=== PATIENT | female | born 2005 | race Caucasian/White ===

== ENCOUNTER → 2024-04-26 15:36 | Outpatient (CLI) | payer OTHER, MEDICAID, SELFPAY ==
[2024-04-26 18:22] LABS: Add Manual Diff / Slide Review NO; Basophils Absolute Auto 0 /uL (0-100); Basophils Percent Auto 0.2 % (0-2); Eosinophils Absolute Auto 100 /uL (0-450); Eosinophils Percent Auto 0.5 % (2-4); Hematocrit 35.8 % (36-46); Hemoglobin 12.1 g/dL (12.0-16.0); Lymphocytes Absolute Auto 3100 /uL (1100-4500); Lymphocytes Percent Auto 18.2 % (25-40); Mean Corpuscular HGB Conc 33.7 % (30-36); Mean Corpuscular Hemoglobin 28.4 PG (26-34); Mean Corpuscular Volume 84.5 fL (80-100); Monocytes Absolute Auto 1400 /uL (0-900); Monocytes Percent Auto 8.1 % (3-14); Neutrophils Absolute Auto 12600 /uL (1500-7000); Platelet Count 271 X10^3/uL (150-400); Red Blood Cell Count 4.24 X10^6/uL (4.0-5.2); Red Cell Distribution Width 13.6 % (11.6-14.8); White Blood Cell Count 17.3 X10^3/uL (4.5-11.0)
[2024-04-26 19:06] LABS: GTT (PREG) 1 Hour PP 50gm Dose 87 mg/dL (76-139)
== END ==
PROVIDERS: Referring Provider Student in an Organized Health Care Education/Training Program; Visit Provider Student in an Organized Health Care Education/Training Program
DX: Z34.00 Encounter for supervision of normal first pregnancy, unspecified trimester (principal)
CPT/HCPCS: 82950; 85025; 86850; 86900; 86901

== ENCOUNTER → 2024-05-02 12:42 | Outpatient (CLI) | payer OTHER, MEDICAID, SELFPAY ==
--- NOTE | 2024-05-02 12:43 | DI.US.S_ITS ---
PROCEDURE: US OB >= 14 WEEKS FETUS INDICATIONS: anatomy OUTSIDE/PRIOR DATING DATA: Last menstrual period (LMP): 10/14/2023. LMP-based estimated date of delivery (WALE): 07/20/2024. First dating scan (date and location): Not applicable. Estimated date of delivery (WALE) from first dating scan: Not applicable. The calculations are made using the clinical WALE of 07/20/2024. TECHNIQUE: Real-time scanning was performed of the fetus, with image documentation and biometric measurements. Endovaginal scanning: No COMPARISON: None. FINDINGS: General: A single living intrauterine gestation is present. Presentation: Breech. Placenta: Placental position is anterior , without previa. Amniotic fluid index: 17.0 cm, normal range is 5-24 cm. Single deepest vertical pocket is 7.6 cm. heart rate: 136 beats per minute. Maternal cervical canal: 4.0 cm long. Normal lower limit is 2.5 cm. biometrics: Biparietal diameter: 7.0 cm, 28 week 1 day Head circumference: 27.0 cm, 29 week 3 day Abdominal circumference: 25.1 cm, 29 week 2 day Femur length: 5.1 cm, 27 week 2 day Clinically estimated gestational age: 28 week 5 day Composite gestational age from present scan: 28 week 4 day Estimated weight and percentile: 1249 g, 32% Anatomic survey: Neuro: Ventricles are non-dilated at less than 10 mm. Cisterna magna is normal at 3-11 mm. Cerebellum is normal in size and morphology. Nuchal skin fold: Normal at less than 6 mm between 14-21 weeks gestational age. Face: Nose and lips, facial profile are normal. Spine: No evidence for spina bifida. Heart: 4-chambered heart is present, with normal ventricular outflow tracts. Diaphragm: Diaphragm is intact. Stomach: Left-sided stomach is present. Kidneys: No hydronephrosis. Normal is less than 5 mm in 2nd trimester, less than 7 mm in 3rd trimester. Cord: 3-vessel cord has orthotopic insertion. Bladder: Normal in size. Extremities: All 4 extremities identified. IMPRESSION: Single live intrauterine consistent with 28 week 4 day gestation Normal anatomic survey Approved by: Ian Grigsby M.D. on 05/02/2024 at 18:10
[2024-05-02 15:48] LABS: Urine N gonorrhoeae NOT DETECTED
[2024-05-02 15:49] LABS: Urine Chlamydia NOT DETECTED
== END ==
PROVIDERS: Referring Provider Student in an Organized Health Care Education/Training Program; Visit Provider Student in an Organized Health Care Education/Training Program
DX: Z34.03 Encounter for supervision of normal first pregnancy, third trimester (principal); Z3A.28 28 weeks gestation of pregnancy
CPT/HCPCS: 76811; 87491; 87591

== ENCOUNTER 2024-06-12 14:40 | Outpatient (CLI) | payer OTHER, MEDICAID, SELFPAY | END 2024-06-12 15:45 | disposition home or self-care (01) | LOC: OB 06-16 09:25 | PROVIDERS: Referring Provider Obstetrics & Gynecology; Visit Provider Obstetrics & Gynecology | DX: O99.413 Diseases of the circulatory system complicating pregnancy, third trimester (principal); O99.333 Smoking (tobacco) complicating pregnancy, third trimester; F17.210 Nicotine dependence, cigarettes, uncomplicated; O99.513 Diseases of the respiratory system complicating pregnancy, third trimester; J45.909 Unspecified asthma, uncomplicated; Z3A.34 34 weeks gestation of pregnancy; I99.9 Unspecified disorder of circulatory system | CPT/HCPCS: 59025; G0378; G0379 ==

== ENCOUNTER 2024-06-15 11:40 | Inpatient (IN) | payer OTHER, MEDICAID, SELFPAY ==
--- NOTE | 2024-06-15 12:25 | PM.OBHP.1 ---
OB HPI Date/Time Date of admission: 06/15/24 Date Patient Seen: 06/15/24 Time Patient Seen: 11:55 History of Present Condition Chief complaint: back px, cramps 35 wks : 1 Para: 0 Estimated Date of Delivery: 07/20/24 Estimated Gestational Age (weeks): 35+0 Narrative: Martinez Barton is a 18 year old female Comments: presented to triage with painful contractions for the last few days. Denies leaking fluid, vaginal bleeding, or decreased movement. Indications Operative indications ( section): breech presentation History of Present care: limited care Dating criteria: LMP confirmed by 2nd trimester US Ultrasounds: normal mid trimester US Narrative: G1 Bicuspid aortic valve, followed by [facility]ology, echo ordered by [facility] provider ADHD, autism, severe anxiety, not currently medicated but sees [facility] Declines to share FOB info, support person is mom Favio h/o maternal mood disorder, no current medications; h/o maternal PTSD/SA, works with community therapist; asthma - mild intermittent, rare albuterol use without h/o hosp/intubations late entry into care at 24wga (outside dating US requested and pending) ongoing tobacco/THC use, Preadmission Labs Blood type: A (+) positive -: Antibody screen: negative, Cystic fibrosis screen: unknown, GBS status: unknown, HBsAG: negative, HIV: negative, HSV 1: unknown, HSV 2: unknown and RPR/VDLR: negative -: Chlamydia screen: not detected and Gonorrhea screen: not detected -: Rubella: immune and Varicella: immune HCT: 35.8 HCAB: negative 1 hr GTT: 87 Evaluation Evaluation Baseline heart rate: 130 Variability: Moderate (11-25) monitor accelerations: Present Monitor Decelerations: Absent Contraction Frequency (minutes): 4 Uterine Contraction Intensity: Moderate Status: Category l Dilation (cm): 6 Effacement (%): 90 station: -1 Comments: Breech on bedside ultrasound [facility] Medical History (Updated 04/18/24 @ 14:50 by Marjorie Canada, PAUL) Eating disorder Migraines Amblyopia Surgical History (Updated 04/18/24 @ 14:20 by Marjorie Canada RN) No pertinent past surgical history Family History (Updated 04/18/24 @ 14:25 by Marjorie Canada RN) Mother Leukemia Grandmother Ovarian cancer Uterine cancer Cervical cancer COPD (chronic obstructive pulmonary disease) Smoker Social History marital status: unmarried,single number of children: 0 household members: family (mother and grandfather) lives independently: Yes caregiver/support person: No housing: house pets and animals: Yes (cats, wears gloves and mask when scooping litter box) education level: high school (Just finishing senior classes) occupational status: unemployed and student current occupational exposures/hazards: No special rowan needs: No travel history: over 6 months ago seatbelt use: always helmet use: Yes water heater temp set < 120 deg: Yes working smoke detector in home: Yes fire extinguisher in home: Yes carbon monox detector in home: Yes firearms in home: Yes firearms unloaded and locked: Yes do you feel safe at home: Yes Smoking Status: Current every day smoker (trying to quit) Tobacco: How many years used: 6 quit status: considering quitting second hand exposure: Yes (mother and grandfather also smoke) alcohol intake: former (very occasionally when not pre) substance use type: marijuana (still smoking, cutting down) during the past year weight has: other (wide swings with meds, up to ~200lb, back to almost normal at conception) daily servings fruits/veg: other (I don't keep track.) caffeine: Yes (1-2 cups coffee in AM) Type(s) of exercise: walking Meds Home Medications and Allergies Home Medications Medication Instructions Recorded Confirmed Type [id number] 400 mcg-om3 35 mg-dha 25 tab PO 04/18/24 06/12/24 History mg-epa 5 mg-fish oil chewable tablet albuterol sulfate 90 mcg/actuation 2 puff inhalation Q6H PRN 04/18/24 06/12/24 History aerosol inhaler aspirin 81 mg tablet,delayed 81 mg PO DAILY 04/18/24 06/12/24 History release cetirizine 10 mg tablet (All Day 10 mg PO DAILY PRN 04/18/24 06/12/24 History Allergy (cetirizine)) fluticasone propionate 110 1 puff inhalation BID 04/18/24 06/12/24 History mcg/actuation HFA aerosol inhaler glucosamine sulf dipotassium Cl tab PO 04/18/24 06/12/24 History 750 mg-chondroitin sulf 600 mg tablet omeprazole 20 mg capsule,delayed 20 mg PO DAILY 05/14/24 06/12/24 History release metoclopramide HCl 10 mg tablet 10 mg PO Q6H PRN nausea and 05/29/24 06/12/24 Rx vomiting #60 tabs ondansetron 4 mg disintegrating 4 mg PO Q8H PRN nausea and 05/29/24 06/12/24 Rx tablet vomiting #30 tabs Allergies Allergy/AdvReac Type Severity Reaction Status Date / Time pear Allergy Severe Anaphylaxis Verified 06/12/24 14:01 Review of Systems Review of Systems ROS: Yes All systems reviewed with the patient and are negative except as otherwise documented OB Exam Vital signs Blood Pressure: 122/59 Pulse Rate: 93 HENMT Head: normal to inspection Resp Effort & Inspection: normal respiratory effort and able to speak in complete sentences Other: breathing through contractions Cardio Rate: regular rate Rhythm: regular rhythm Extremities Lower extremity: Yes normal to inspection GI Other: gravid, nontender, nondistended Other: breech on ultrasound Assessment and Plan Assessment and Plan Assessment and Plan narrative: 18yo at 35+0wks admitted in labor at 6cm with a bulging bag. On bedside ultrasound, fetus is in breech presentation. -CBC, T&S on admission -continuous EFM -neuraxial anesthesia -GBS unknown, plan for 2g Ancef for surgical prophylaxis -PPH risk low -VTE risk low, plan for SCDs -will move to OR urgently for delivery counseling: It was explained to the patient that a section is a surgery to deliver the baby through an incision in the abdominal wall and uterus.? All procedures can be associated with risk and unforeseen complications, which can be immediate or delayed.? Risks and complications of section include, but are not limited to:? infection of the uterus, pelvic organs, or skin; inadvertent injury to internal organs such as the bowel, bladder, or possibly even the baby; blood loss, transfusion, and/or life-threatening hemorrhage requiring hysterectomy; blood clots in the legs, pelvic organs, or lungs; adverse reaction to medications or anesthesia during surgery; development of placenta accreta spectrum in a subsequent ; and increased risk of section in a subsequent . Time-Based Coding :: [30min] spent with patient and on the chart (including review of chart, obtaining history, exam, reviewing outside data, placing orders, documenting exam and treatment plan, and counseling patient) on [06/15/24].
[2024-06-15] MEDS: CITRIC ACID/SODIUM CITRATE 15 ML SOLUTION 30 ML PO (12:36)
[2024-06-15] MEDS: LACTATED RINGERS 1,000 ML 999 ML IV ×2 (12:36→13:21)
[2024-06-15 12:38] VITALS: BP 122/59; PULSE 93
[2024-06-15 12:39] LABS: Add Manual Diff / Slide Review NO; Basophils Absolute Auto 100 /uL (0-100); Basophils Percent Auto 0.3 % (0-2); Eosinophils Absolute Auto 100 /uL (0-450); Eosinophils Percent Auto 0.3 % (2-4); Hematocrit 37.4 % (36-46); Hemoglobin 12.4 g/dL (12.0-16.0); Lymphocytes Absolute Auto 2200 /uL (1100-4500); Lymphocytes Percent Auto 9.4 % (25-40); Mean Corpuscular HGB Conc 33.2 % (30-36); Mean Corpuscular Hemoglobin 27.4 PG (26-34); Mean Corpuscular Volume 82.6 fL (80-100); Monocytes Absolute Auto 1700 /uL (0-900); Monocytes Percent Auto 7.3 % (3-14); Neutrophils Absolute Auto 19500 /uL (1500-7000); Neutrophils Percent Auto 82.7 % (50-75); Platelet Count 338 X10^3/uL (150-400); Red Blood Cell Count 4.52 X10^6/uL (4.0-5.2); Red Cell Distribution Width 13.9 % (11.6-14.8); White Blood Cell Count 23.6 X10^3/uL (4.5-11.0)
[2024-06-15 12:44] LABS: Alanine Aminotransferase 17 IU/L (<35); Albumin 4.3 g/dL (3.5-5.0); Albumin Globulin Ratio 1.3 (1.0-2.8); Alkaline Phosphatase 104 U/L (38-126); Aspartate Aminotransferase 26 IU/L (14-36); BUN Creatinine Ratio 14.6 (6-22); Bilirubin Total 0.3 mg/dL (0.2-1.3); Blood Urea Nitrogen 6 mg/dL (7-17); Calcium 9.7 mg/dL (8.4-10.2); Carbon Dioxide 25 mmol/L (22-32); Chloride 105 mmol/L (98-107); Estimated Glomerular Filt Rate > 60 mL/min (>60); Globulin 3.2 g/dL (1.7-4.1); Glucose 80 mg/dL (70-100); HEMOLYSIS < 15 (0-50); Potassium 3.7 mmol/L (3.4-5.1); Sodium 137 mmol/L (137-145); Total Protein 7.5 g/dL (6.3-8.2)
[2024-06-15] MEDS: CEFAZOLIN 2 GM/100 ML PREMIX 100 ML IV (13:04)
[2024-06-15] MEDS: ACETAMINOPHEN IV 1,000 MG/100 ML VIAL 400 MG IV (13:15)
--- NOTE | 2024-06-15 13:17 | SUR.OPER ---
Supine on Padded OR bed, head on pillow, safety belt at thigh, arms secured on padded arm boards at <90 degrees abduction. Bump under right buttock. Legs uncrossed with pillow under knees, gel pad to heels, tape over blanket to lower legs.
--- NOTE | 2024-06-15 13:25 | SUR.OPER ---
baby girl born at 1324
[2024-06-15] MEDS: TRANEXAMIC ACID 1,000 MG in SODIUM CHLORIDE 0.9% 100 ML 200 MG IV (13:45)
[2024-06-15 14:26] VITALS: BP 100/59; PULSE 72; RESP 11; TEMP 36.6; O2SAT 98
[2024-06-15 14:31] VITALS: BP 109/54; BP 95/55; PULSE 78; PULSE 81; RESP 11; RESP 13; O2SAT 97; O2SAT 98
--- NOTE | 2024-06-15 14:31 | P.OP_ITS ---
Operative Date/Time/Diagnoses Date of procedure: 06/15/24 Time of procedure: 13:15 Pre-op diagnosis: 1. Partida intrauterine gestation at 35+0 weeks 2. labor 3. Breech presentation Post-op diagnosis: same Procedure & Clinicians Procedure: Primary low transverse section Same procedure as scheduled: Yes Indications: 18yo at 35+0wks presented to triage with painful contractions and cervical dilation to 6cm. Her baby was noted to be in breech presentation, thus she was counseled and consented for primary delivery. Surgeon: Rosanna David Click Yes if Unassisted: No Atomic Physics Teacher: Mikaela Jackson Reason for Atomic Physics Teacher: Atomic Physics Teacher was necessary for timely, efficient, and safe completion of the procedure. Anesthesia Type: Spinal Operative Notes Findings: Normal-appearing uterus and bilateral fallopian tubes and ovaries. Clear fluid noted with AROM. Delivery productive of a viable female infant in complete breech presentation with APGARS 8/9 and weighing 2370g. Specimen(s): cord blood Intraoperative meds administered: Duramorph, Ketorolac and Tranexamic acid Applied: Catheter Estimated Blood Loss (mL): 800 Blood products transfused: none Procedure in detail: The risks, benefits, indications and alternatives of the procedure were reviewed with the patient and informed consent was obtained. The patient was taken to the operating room where spinal anesthesia was obtained without difficulty and was found to be adequate. Sequential compression devices were placed bilaterally for VTE prophylaxis. She was then prepped and draped in the normal, sterile fashion in the dorsal supine position with a leftward tilt. She received 2g Ancef for surgical prophylaxis. A Pfannenstiel skin incision was then made with the scalpel and carried through to the underlying layer of fascia. The fascia was incised in the midline and was digitally. The superior aspect of the incision was grasped, tented up with Nicholas clamps and the rectus muscles were dissected off bluntly, aided with Marquez scissors. The rectus muscles were then at the midline. The peritoneum was identified, and entered digitally. The peritoneal incision was then extended horizontally, superiorly and inferiorly, with good visualization of the bladder. The bladder blade was then inserted. The lower uterine segment was incised in a transverse fashion with the scalpel. The uterine incision was then extended manually in a cephalad/caudad direction. The amniotic sac was artificially ruptured, productive of clear fluid. The bladder blade was then removed. The infant?s sacrum was grasped and brought to the level of the hysterotomy. Pinard?s maneuver was used to atraumatically deliver the legs through the hysterotomy. A blue towel was placed around the sacrum and Loveset?s maneuver was performed which allowed delivery of the rest of the body and head. The cord was doubly clamped and cut after a 60sec delay given that the was vigorous, then the handed off to waiting pediatric care. The placenta was then removed spontaneously with gentle traction on the umbilical cord. The uterus was then exteriorized and cleared of all clots and debris. The uterine incision was repaired with 0-vicryl in a running, locked fashion. A figure of eight suture was placed at the left edge of the hysterotomy, along with an O'leary stitch given expanding bleeding beneath the uterine serosal layer on the left side. This was then inspected and noted to be hemostatic. The posterior cul-de-sac was then irrigated and suctioned.? The uterus was returned to the abdomen and the hysterotomy was again noted to be hemostatic. The paracolic gutters were cleared of all clot and debris. There was continued run down of blood in the gutters and lower uterine segment, which was monitored for an extended period of time, and noted to be dry after observation and 1g of TXA given. The fascia was reapproximated with 0-vicryl in a running fashion. The subcutaneous layer was closed with 3-0 vicryl in simple, interrupted sutures. The skin was closed with 4-0 monocryl in a subcuticular fashion. The incision was then dressed with steri-strips and a pressure dressing was applied. At the completion of the case, a Crede maneuver was performed with good uterine tone and minimal vaginal bleeding noted.? The patient tolerated the procedure well. Sponge, lap and needle counts were correct x3. The patient was taken to the recovery room in stable condition. Complications: none Post-operative Condition: stable Disposition: PACU Aftercare: routine postop
[2024-06-15 14:37] VITALS: BP 97/48; PULSE 63; RESP 11; O2SAT 98
[2024-06-15] MEDS: LACTATED RINGERS 1,000 ML 100 ML IV (15:58)
[2024-06-15] MEDS: OXYCODONE IR 5 MG TABLET PO (17:18)
[2024-06-15] MEDS: ONDANSETRON 4 MG/2 ML INJ IV (19:20)
[2024-06-15] MEDS: METOCLOPRAMIDE 10 MG/2 ML INJ IV (19:53)
[2024-06-15] MEDS: KETOROLAC 30 MG/ML VIAL IV (20:22)
[2024-06-15] MEDS: ACETAMINOPHEN 325 MG TABLET 650 MG PO (22:12)
[2024-06-16] MEDS: KETOROLAC 30 MG/ML VIAL IV ×2 (02:04→08:15)
[2024-06-16] MEDS: ACETAMINOPHEN 325 MG TABLET 650 MG PO ×2 (05:48→11:39)
[2024-06-16 06:29] LABS: Add Manual Diff / Slide Review NO; Basophils Absolute Auto 100 /uL (0-100); Basophils Percent Auto 0.2 % (0-2); Eosinophils Absolute Auto 0 /uL (0-450); Eosinophils Percent Auto 0.2 % (2-4); Hematocrit 26.8 % (36-46); Hemoglobin 8.9 g/dL (12.0-16.0); Lymphocytes Absolute Auto 3300 /uL (1100-4500); Lymphocytes Percent Auto 11.3 % (25-40); Mean Corpuscular HGB Conc 33.3 % (30-36); Mean Corpuscular Hemoglobin 27.3 PG (26-34); Mean Corpuscular Volume 82.1 fL (80-100); Monocytes Absolute Auto 2300 /uL (0-900); Monocytes Percent Auto 7.8 % (3-14); Neutrophils Absolute Auto 23700 /uL (1500-7000); Neutrophils Percent Auto 80.5 % (50-75); Platelet Count 250 X10^3/uL (150-400); Red Blood Cell Count 3.26 X10^6/uL (4.0-5.2); Red Cell Distribution Width 13.9 % (11.6-14.8); White Blood Cell Count 29.5 X10^3/uL (4.5-11.0)
[2024-06-16] MEDS: FERROUS SULFATE 325 MG TABLET PO (08:15)
[2024-06-16] MEDS: LANOLIN OINT 7 GM 1 APPLIC TOP (08:15)
[2024-06-16] MEDS: PRENATAL VIT,CALC/IRON/FOLIC 1 TABLET 1 TAB PO (08:15)
[2024-06-16] MEDS: DOCUSATE 100 MG CAPSULE PO (08:15)
[2024-06-16] MEDS: METOCLOPRAMIDE 10 MG/2 ML INJ IV (08:56)
--- NOTE | 2024-06-16 10:46 | P.DS_ITS ---
Discharge Providers Provider Date of admission: 06/15/24 11:40 Discharge Date: 06/16/24 Primary care physician: Darling Hurst MD Consults: 06/15/24 15:53 Consult to Land Mobile Radio Technician Routine Comment: 06/16/24 10:30 Consult to CARDROOM DRAWING RUNNER - Internal Medicine Physician Routine Comment: Internal Medicine Physician Consult needed for:: Other reason (Comment) Comment: pt is 18yrs old, living w/ mom. FOB not involved. H/O ADHD and autism. Limited finances. 35 week baby was transferred to [facility]. Unsure if she can afford to drive to [place]. Discharge provider: Rosanna David DO Summary Hospital Course Date Patient Seen: 06/16/24 Time Patient Seen: 10:48 Diagnoses: gestation at 35+0wks labor Breech presentation Tobacco and marijuana use in History of maternal mood disorders History of maternal bicuspid aortic valve Late care at 24wks Hospital Course: 18yo [id number] admitted at 35+0wks for active labor. Her fetus was noted to be in breech presentation, thus she was counseled and consented for primary low transverse delivery. Her delivery was uncomplicated, and productive of a viable female . Her course was notable for expected anemia given delivery. Her infant was transferred to the NICU on day #0. On post-op day #1, the patient was ambulating, tolerating regular diet, voiding spontaneously with minimal lochia. Her pain was well controlled with oral medications, thus she was discharged to home on post-op day #1. During her hospitalization, she was noted to have leukocytosis, however she remained afebrile with no signs/symptoms of infection. Extensively reviewed signs/symptoms of infection and reasons to call or come to the ER. Peripartum Data Delivery Method: Section Procedures: External monitoring Neuraxial anesthesia delivery complications: none 1: Gender: Female Disposition of : NICU Discharge Diagnosis (1) delivery delivered: Status: Acute (2) labor in third trimester with delivery: Status: Acute (3) Breech presentation: Status: Acute (4) Acute postoperative anemia due to expected blood loss: Status: Acute (5) Leukocytosis: Status: Acute (6) Anxiety during : Status: Acute (7) Tobacco use complicating : Status: Acute (8) Marijuana use during : Status: Acute (9) Maternal congenital cardiac anomaly, antepartum: Status: Acute (10) 35 weeks gestation of : Status: Acute Status at Discharge Cognitive/behavioral status at discharge: oriented Functional status at discharge: independent ambulation Overall status at discharge: patient is progressing back to baseline Time Spent with Patient Time attestation: Total time spent providing and/or coordinating discharge services: Time spent: Greater than 30 minutes Objective Labs 06/16/24 06:09 06/15/24 12:21 Labs: Laboratory Results - last 24 hr 06/15/24 06/16/24 12:21 06:09 WBC 23.6 H 29.5 H RBC 4.52 3.26 L Hgb 12.4 8.9 L Hct 37.4 26.8 L MCV 82.6 82.1 MCH 27.4 27.3 MCHC 33.2 33.3 RDW 13.9 13.9 Plt Count 338 250 Neut % (Auto) 82.7 H 80.5 H Lymph % (Auto) 9.4 L 11.3 L [place] % (Auto) 7.3 7.8 Eos % (Auto) 0.3 L 0.2 L Baso % (Auto) 0.3 0.2 Neut # (Auto) 87186 H 09883 H Lymph # (Auto) 2200 3300 [place] # (Auto) 1700 H 2300 H Eos # (Auto) 100 0 Baso # (Auto) 100 100 Sodium 137 Potassium 3.7 Chloride 105 Carbon Dioxide 25 BUN 6 L Creatinine 0.41 L Estimated GFR > 60 BUN/Creatinine Ratio 14.6 Glucose 80 Calcium 9.7 Total Bilirubin 0.3 AST 26 ALT 17 Alkaline Phosphatase 104 Total Protein 7.5 Albumin 4.3 Globulin 3.2 Albumin/Globulin Ratio 1.3 Blood Type A Positive Antibody Screen Negative Exam Vital Signs (past 8 hours): Oxygen Delivery Method Room Air vitals reviewed in OBIX, normal blood pressure and pulse rate, afebrile Const General: cooperative, healthy appearing, comfortable and No acute distress Resp Effort & Inspection: normal respiratory effort GI Inspection: normal to inspection Other: fundus firm and nontender Skin General: no rashes or lesions noted Other: low transverse incision clean/dry/intact with steri-strips in place Neuro General: patient alert and patient awake Extrem General: normal to inspection and no calf tenderness Psych Mood: congruent mood Affect: normal affect Discharge Plan Discharge Plan Patient Disposition: Home Provider Discharge Comment: Take ibuprofen 800mg every 8hrs and acetaminophen 650mg every 6hrs for pain. Use oxycodone 5mg every 4hrs as needed for severe pain. Avoid lifting greater than 20lbs for at least 6 weeks. Avoid placing anything in the vagina for at least 6 weeks. Take an oral iron supplement daily for 3 months for anemia. Discharge orders & Medications Prescriptions: New oxycodone 5 mg Tablet 5 mg PO Q4H PRN (Reason: Pain, Moderate (4-6)) Qty: 10 0RF Continued omeprazole 20 mg capsule,delayed release(DR/EC) 20 mg PO DAILY [id number] oil 400 mcg-35 mg -25 mg-5 mg tablet,chewable PO fluticasone propionate 110 mcg/actuation HFA aerosol inhaler 1 puff inhalation BID Patient Comments: Pt reports that she usually uses this at bedtime rather than BID albuterol sulfate 90 mcg/actuation HFA aerosol inhaler 2 puff inhalation Q6H PRN glucosamine dye 2KCl-chondroit 750-600 mg tablet PO cetirizine [All Day Allergy (cetirizine)] 10 mg tablet 10 mg PO DAILY PRN Discontinued ondansetron 4 mg tablet,disintegrating 4 mg PO Q8H PRN (Reason: nausea and vomiting) Qty: 30 3RF metoclopramide HCl 10 mg tablet 10 mg PO Q6H PRN (Reason: nausea and vomiting) Qty: 60 2RF aspirin 81 mg tablet,delayed release (DR/EC) 81 mg PO DAILY Follow up/Referrals: Rosanna David DO [Physician] - 1 Week (If you don't receive a phone call on 06/17, please call our clinic to book a 1 week incision check and 6 week appointment.) Diet/Activity/Treatments Diet: Diet as Tolerated Activity: As tolerated Skin/Wound/Dressing Care Report to your healthcare provider any signs of infection, such as:: chills, fever, increased pain, unusual drainage and unusual redness Dressing: You may shower normally. The steri-strips should fall off after 1 week. Visit Report/Discharge Packet Instructions: DI for , DI for Prescription Opioid Use Stand Alone Forms: Discharge: Care, Patient Portal/API, Stroke Signs & Symptoms Discharge Data Primary Care Provider: Darling Hurst
--- NOTE | 2024-06-16 12:36 | CM.SWNOTE ---
ED SUPERVISOR GRADING Assessment Note: Reviewed EMR and team rounds for pt?s medical status. Per BC RN, pt is cleared for discharge at approximately 1400. SUPERVISOR GRADING entered room to meet with patient, introduced self and role. Pt endorses she is prepared for discharge and her mother will pick her up at around 1300, they will discuss when she arrives when they will drive to [facility]. Support: Pt explains father of baby is not available but her mother is a source of support for herself and her baby. ED SUPERVISOR GRADING inquired about baby items such as car sleep and crib for safe sleep, pt reports she has all items necessary prepared except for a breast pump. Pt reports she has been provided a list of resources on how to obtain a pump through insurance. ED SUPERVISOR GRADING provided printed Community Resources for and Families in [facility] to pt. ED SUPERVISOR GRADING called [facility] and left a voice message with hopes of connecting pt to lodging and transportation for mothers of premature born babies and had to get transferred. Pt declines any other needs at this time. SUPERVISOR GRADING notified BC RN and discussed that transport will now be provided by pt mother at discharge. Plan: Pt to discharge home with mother to transport, will follow up with PCP and community resources. BE Tyson
[2024-06-16 14:21] VITALS: BP 97/48; PULSE 63; RESP 11; TEMP 36.6
== END 2024-06-16 14:15 | disposition home or self-care (01) | DRG 540 ==
PROVIDERS: Admitting Provider Student in an Organized Health Care Education/Training Program; PCP Obstetrics & Gynecology; Referring Provider Student in an Organized Health Care Education/Training Program; Visit Provider Student in an Organized Health Care Education/Training Program
PROC: 10D00Z1 Extraction of Products of Conception, Low, Open Approach (ICD-10-PCS; CPT 59514; principal; 2024-06-15 13:15)
DX: O60.14X0 Preterm labor third trimester with preterm delivery third trimester, not applicable or unspecified (principal); O32.8XX0 Maternal care for other malpresentation of fetus, not applicable or unspecified; O99.334 Smoking (tobacco) complicating childbirth; O99.324 Drug use complicating childbirth; F12.90 Cannabis use, unspecified, uncomplicated; Z3A.35 35 weeks gestation of pregnancy; Z37.0 Single live birth
CPT/HCPCS: 36415; 59050; 59514; 76815; 80053; 85025; 86850; 86900; 86901; G0379; J0134; J0690; J1100; J1885; J2250; J2274; J2405; J2704; J2765

== ENCOUNTER → 2025-04-08 16:09 | Outpatient (CLI) | payer OTHER, SELFPAY ==
--- NOTE | 2025-04-08 16:10 | DI.MRI.S_ITS ---
PROCEDURE: MR KNEE RT WO CON INDICATIONS: r/o MFPL injury TECHNIQUE: Noncontrast sagittal PD fast spin echo and T2 fast spin echo with fat saturation, sagittal 3-D FLASH with fat saturation; coronal T1 spin echo and PD fast spin echo with fat saturation, and axial PD fast spin echo with fat saturation through the knee. COMPARISON: None. FINDINGS: Image quality: Excellent. Menisci: The medial and lateral menisci demonstrate normal morphology and internal signal. The meniscal root ligaments appear intact. Cruciate ligaments: The anterior and posterior cruciate ligaments appear intact. Medial structures: There is mild increased T2 weighted signal and thickening of the proximal and distal aspects of the medial patellofemoral ligament suspicious for mild injury/strain. Mild bone edema is noted in the medial femoral condyle which may indicate bone contusion or trabecular injury. No distinct fracture line or cortical disruption.. The medial collateral ligament appears intact. The semimembranosus tendon insertion is intact. Visualized portions of the pes anserinus tendons appear normal. No abnormal bursal fluid. Lateral structures: Moderate diffuse increased T2 weighted signal/edema and mild fluid in the lateral subcutaneous tissues and adjacent to the iliotibial band and lateral patellofemoral ligament suggests moderate injury/strain. Possible partial tear of the iliotibial band distally (axial series 8, image 5). Mild edema adjacent to the proximal lateral head of the gastrocnemius. The lateral collateral ligament, long and short heads of the biceps femoris tendon appear intact. The popliteus tendon appears normal. Anterior structures: Mild nonspecific edema infrapatellar fat pad. Quadriceps tendon and patellar ligament are intact. Mild patella Agnes. Otherwise the patella alignment is normal. No femoral trochlear dysplasia or ventral trochlear prominence. Bones and cartilage: Nonspecific mild cartilage thinning in the medial compartment medial femoral condyle weight bordering segment. Otherwise the patellofemoral and lateral compartment cartilage is normal. No focal cartilage defect. No bone marrow contusions or fractures. Joint space: There is physiologic knee joint fluid. No Booker's cyst. IMPRESSION: Edema in adjacent to the iliotibial band and lateral patellofemoral ligament suggests injury/strain versus partial tear. Mild signal changes in the medial patellofemoral ligament may be an indication of mild injury/strain. Nonspecific mild bone edema in the medial femoral condyle medially. Minimal cartilage thinning in the medial femoral condyle. Dictated by: John Barton M.D. on 04/09/2025 at 13:49 Approved by: John Barton M.D. on 04/09/2025 at 14:14
== END ==
LOC: MRI 16:09
PROVIDERS: PCP Student in an Organized Health Care Education/Training Program; Referring Provider Orthopaedic Surgery; Visit Provider Orthopaedic Surgery
DX: M25.561 Pain in right knee (principal)
CPT/HCPCS: 73721